=== PATIENT | female | born 2005 | race Caucasian/White ===

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

== ENCOUNTER → 2024-02-05 09:40 | Outpatient (BNVA) | payer OTHER, SELFPAY | PROVIDERS: PCP Family Medicine; Visit Provider Family Medicine Adult Medicine | DX: R39.9 Unspecified symptoms and signs involving the genitourinary system (principal) | CPT/HCPCS: 81000 ==

== ENCOUNTER → 2024-04-15 14:00 | Outpatient (BNVA) | payer OTHER, SELFPAY | PROVIDERS: PCP Family Medicine; Visit Provider Obstetrics & Gynecology | DX: R11.2 Nausea with vomiting, unspecified (principal) | CPT/HCPCS: 84702 ==

== ENCOUNTER → 2024-06-06 13:53 | Outpatient (BNVA) | payer OTHER, SELFPAY | PROVIDERS: Visit Provider Nurse Practitioner | DX: N92.6 Irregular menstruation, unspecified (principal) | CPT/HCPCS: 81025 ==

== ENCOUNTER → 2024-07-01 14:42 | Outpatient (BNVA) | payer OTHER, SELFPAY | PROVIDERS: Visit Provider Nurse Practitioner Women's Health | DX: N92.6 Irregular menstruation, unspecified (principal) | CPT/HCPCS: 81025; 83036; 84146; 84402; 84439; 84443; 84702 ==

== ENCOUNTER → 2024-11-18 12:49 | Outpatient (BNVA) | payer OTHER, SELFPAY | PROVIDERS: Visit Provider Emergency Medicine | DX: N94.6 Dysmenorrhea, unspecified (principal) | CPT/HCPCS: 81025 ==

== ENCOUNTER → 2024-12-16 12:54 | Outpatient (BNVA) | payer OTHER, SELFPAY | PROVIDERS: Visit Provider Nurse Practitioner Women's Health | DX: Z11.3 Encounter for screening for infections with a predominantly sexual mode of transmission (principal); N93.9 Abnormal uterine and vaginal bleeding, unspecified | CPT/HCPCS: 84439; 84443; 84702; 85025; 87086; 87491; 87591; 87661 ==

== ENCOUNTER → 2024-12-26 13:23 | Outpatient (BNVA) | payer OTHER, SELFPAY | PROVIDERS: Visit Provider Nurse Practitioner Women's Health | DX: N92.6 Irregular menstruation, unspecified (principal); N93.9 Abnormal uterine and vaginal bleeding, unspecified; N88.4 Hypertrophic elongation of cervix uteri | CPT/HCPCS: 76830 ==

== ENCOUNTER → 2025-01-25 13:37 | Outpatient (BNVA) | payer OTHER, SELFPAY | PROVIDERS: Visit Provider Nurse Practitioner Women's Health | DX: N93.9 Abnormal uterine and vaginal bleeding, unspecified (principal); R53.83 Other fatigue | CPT/HCPCS: 82728; 83540; 85025 ==

== ENCOUNTER 2025-06-25 14:09 | Emergency (ER) | payer MEDICAID, SELFPAY ==
[2025-06-25 14:13] VITALS: BP 124/88; PULSE 86; RESP 16; TEMP 37.1; O2SAT 97; BMI 24.5
--- OUTSIDE RECORDS SUMMARY | 2025-06-25 14:14 | XMS_ITS | Encounter Summary ---
Author Organization [facility] Address [address] [place] [address] Care Team Providers Care Metabolic Specialist Name Role Phone Nancy Rasheed DO Primary Care Provider [phone] Encounter Details Date Type Department Care Team (Late st Contact Info) Description 06/21/2025 External Device Data [facility] Provider, Abstract NO ADDRESS ON FILE Social History Tobacco Use Types Packs/Day Years Used Date Smoking Tobacco: Never Cigarettes Smokeless Tobacco: Never Alcohol Use Standard Drinks/Week Comments Never 0 (1 standard drink = 0.6 oz pur e alcohol) Adolescent Education Answer Date Record ed Getting School Help Needed Not on file 05/31 Comments Unknown Sex and Gender Information Value Date Recorded Sex Assigned at Not on file 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 Gender Identity Not on file Sexual Orientation Not on file documented as of this encounter Plan of Treatment Upcoming Encounters Date Type Department Care Team (Late st Contact Info) Description 07/27/2025 1:50 PM CDT Office Visit [facility] Joseph Knight [place] [address] [place] [address] Freddy Ventura DO [address] [place] [phone] documented as of this encounter Visit Diagnoses Not on filedocumented in this encounter Care Teams Metabolic Specialist Relationship Specialty Start Date End Date Nancy Rasheed DO [address] [place] [id number] PCP - General 01/01/21 documented as of this encounter
--- OUTSIDE RECORDS SUMMARY | 2025-06-25 14:14 | XMS_ITS | Clinical Summary ---
Author Organization [facility] Address [address] [place] [address] Care Team Providers Care Metal Tile Lather Name Role Phone WiliNancy ortega Primary Care Provider Allergies Active Allergy Reactions Criticality Noted Date Comments Broccoli Swelling Low 09/06/2020 Unclassified Drug Hives High 07/10/2021 [place] and perfumes Medications albuterol HFA 90 mcg inhalerIndications :Exercise-induced asthma Take 2 Puffs by inhalation every 6 hours as needed for Shortness of Breath. 8.5 Gram 0 1 Active haloperidoL (HALDOL) 0.5 mg tabletIndications: Bipolar 1 disorder, depressed, moderate (CMS/HCC),Verbaliz es suicidal thoughts,Visual hallucinations,Aud itory hallucinations Take 1 Tablet (0.5 mg) by mouth 3 times daily as needed for Delirium. 60 Tablet 1 Active hydrOXYzine HCL (ATARAX) 25 mg tabletIndications: Anxiety Take 1 Tablet (25 mg) by mouth 3 times daily as needed for Anxiety or Itching. 90 Tablet 1 1 Active sertraline (Zoloft) 50 mg tabletIndications: Bipolar 1 disorder, depressed, moderate (CMS/HCC),Anxiety Take 1 Tablet (50 mg) by mouth daily. 90 Tablet 1 1 Active brexpiprazole (REXULTI) 2 mg TabletIndications: Bipolar 1 disorder, depressed, moderate (CMS/HCC),Visual hallucinations,Aud itory hallucinations,Anx iety Take 1 Tablet (2 mg) by mouth daily. 30 Tablet 1 1 Active Active Problems Problem Noted Date Diagnosed Date Amenorrhea 04/16/2021 Dysmenorrhea in adolescent 09/14/2020 Breakthrough bleeding on control pills Encounters Date Type Department Care Team Description 06/21/2025 External Device Data [facility] ABSTRACTION Provider, Abstract 06/13/2025 External Device Data [facility] ABSTRACTION Provider, Abstract 06/13/2025 External Device Data [facility] ABSTRACTION Provider, Abstract 06/12/2025 Telephone [facility] Joseph Knight [place] [address] [place] [id number] Freddy Ventura DO Referral from Last 3 Months Family History Medical History Relation Name Comments Diabetes Mother Heart Disease Mother Breast Cancer Neg Hx Ovarian Cancer Neg Hx Relation Name Status Comments Mother Social History Tobacco Use Types Packs/Day Years [...] on file 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 Gender Identity Not on file Sexual Orientation Not on file Last Filed Vital Signs Vital Sign Reading Time Taken Comments Blood Pressure 118/62 07/10/2021 10:53 AM CDT Pulse 113 07/10/2021 10:53 AM CDT Temperature 36.3 C (97.3 F) 07/10/2021 10:53 AM CDT Respiratory Rate 18 07/10/2021 10:53 AM CDT Oxygen Saturation 97% 07/10/2021 10:53 AM CDT Inhaled Oxygen Concentration - - Weight 56.7 kg (125 lb) 07/10/2021 10:53 AM CDT Height 152.4 cm (5') 07/10/2021 10:53 AM CDT Body Mass Index 24.41 07/10/2021 10:53 AM CDT Plan of Treatment Upcoming Encounters Date Type Department Care Team (Late st Contact Info) Description 07/27/2025 1:50 PM CDT Office Visit [facility] Joseph Knight [place] [address] [place] [phone] Freddy Ventura DO [address] [place] [phone] Health Maintenance Due Date Last Done Comments HEPATITIS B VACCINES (4 of 4 - 4-dose series) 07/03/2005 05/05/2005, 03/03/2005, 2004 CHLAMYDIA SCREENING (ANNUAL) 11-24 YEARS 01/01/2016 DTAP/TDAP/TD VACCINES (1 - Tdap) 01/01/2024 Preventative Visit-Managed Medicaid 01/01/2024 INFLUENZA VACCINE (#1) 2025 07/10/2021 HPV VACCINES Completed 03/13/2017, 07/18/2016 Insurance [facility] [facility] MEDICAID [facility] MEDICAID [facility] Care Teams Metal Tile Lather Relationship Specialty Start Date End Date Nancy Rasehed DO [address] [place] [address] PCP - General 01/01/21
--- NOTE | 2025-06-25 14:59 | ED_ITS ---
HPI - 2 General: Chief complaint: Vaginal Bleeding Stated complaint: shedding clots(8wks) Time Seen by Provider: 06/25/25 14:31 History of Present Illness: 19-year-old female presents to the [facility] ency room with complaints of pelvic cramping and vaginal bleeding. Her last menstrual period was 05/16/2025 which would give her an estimated gestational age of 5 weeks and 5 days with an EDC of 02/20/2026. Patient has not had a positive test at home. She states the bleeding is already decreased. She denies any dysuria urgency or frequency no abdominal pain no fever sweats or chills. Patient believes she passed some blood and tissue last night. Associated symptoms: Deny abdominal pain or dysuria Related Data Previous Rx's ?Medication ?Instructions ?Recorded escitalopram oxalate 10 mg tablet 10 mg PO DAILY #30 t abs 06/15/25 hydroxyzine HCl 25 mg tablet 25 mg PO BID PRN anxiety #60 tabs 06/15/25 Allergies Allergy/AdvReac Type Severity Reaction Status Date / Time broccoli Allergy Severe mouth burn Verified 06/25/25 14:13 perfume Allergy Severe hives Verified 06/25/25 14:13 Review of Systems 2 Const: Denies: fever(s) or chills Card: Denies: chest pain Resp: Denies: dyspnea GI: Denies: abdominal pain : Denies: dysuria, urinary frequency or urinary urgency Musc: Denies: neck pain or back pain Skin/Breast: Denies: rash PFSH ED 2 PFSH: Medical History No pertinent past medical history neghx:htn,dm,thyroid,dvt/pe PCP: [facility] Anxiety disorder, unspecified Reports anxiety that impairs ability to leave the home; without family or close friends, unable to go to public functions; hasn't felt like going to the store; anxiety produces physical symptoms of shortness of breath, sweaty palms, racing heartbeat, sometimes nausea, hard to talk, difficult to perform basic functions. Symptoms have worsened since 10/2019, when she got out of a relationship with her significant other of 2 years; it was not healthy at all, it was a stressful relationship. It left me with a lot of anxiety, an anxiety of men. She denies physical abuse. He never beat me. Also reports feeling depressed, intermittent feelings of helplessness and worthlessness. No current suicidal thoughts. Borderline personality disorder in adolescent Please refer to EMR for previous diagnosis, psychiatric evaluations, and therapy/[facility] medication management provider notes. Surgical History H/O breast biopsy (~06/2022) left breast-- fibroadenoma Family History Grandmother Diabetes Hypertension Mother Heart disease Hypertension Denies family history of Colon cancer Ovarian cancer Hypercholesteremia Breast cancer Uterine cancer Thyroid disease Stroke Social History Smoking and tobacco/nicotine status: never used tobacco/nicotine Physical Exam 2 Const: COMMON NORMALS: no acute distress GENERAL APPEARANCE: cooperative and comfortable ORIENTATION/CONSCIOUSNESS: Yes awake, Yes oriented to person, Yes oriented to place and Yes oriented to time HENMT: COMMON NORMALS: normocephalic, atraumatic and hearing grossly normal bilaterally HEAD & SCALP: normocephalic and atraumatic Resp: COMMON NORMALS: normal respiratory effort, No retractions, No use of accessory muscles and clear to auscultation bilaterally AUSCULTATION: clear to auscultation bilaterally Cardio: COMMON NORMALS: regular rate, regular rhythm and No murmurs present (Cardio) RATE: regular rate RHYTHM: regular rhythm GI: COMMON NORMALS: Soft to palpation and No hepatosplenomegaly present A USCULTATION: Yes normoactive bowel sounds PALPATION: Yes Soft to palpation, No Tenderness to palpation present (GI), No Guarding due to palpation present (GI) and Yes No hepatosplenomegaly present Extremity: COMMON NORMALS: normal to inspection, capillary refill normal, no clubbing, cyanosis or edema, no calf tenderness and no pedal edema Neuro: SENSORIUM/ORIENTATION: Yes oriented to person, Yes oriented to place and Yes oriented to time Skin: COMMON NORMALS: no rashes or lesions noted GENERAL SKIN EXAM: no rashes or lesions noted Course 2 Vital Signs: Vital signs: Vital Signs Temperature 98.7 F 06/25/25 14:13 Pulse Rate 73 06/25/25 16:05 Respiratory Rate 16 06/25/25 14:13 Blood Pressure 112/74 06/25/25 16:05 Pulse Oximetry 97 06/25/25 16:05 Oxygen Delivery Me thod Room Air 06/25/25 15:08 MDM - OB/Uterine Contractions Medical Decision Making Beta-hCG less than 1. Suspect patient just had a missed period. Given that her beta-hCG is undetectable already do not believe she actually had a miscarriage. Reviewed findings with patient advised her to follow-up with her primary care doctor she is currently on oral contraceptives. Follow-up with your primary if she continues to have irregular periods Medical Records I reviewed the patient's medical records. Lab Data I reviewed the patient's lab results. 06/25/25 15:15 Laboratory Results WBC 9.12 10^3/uL (4.5-13.0) 06/25/25 15:15 RBC 4.23 10^6/uL (3.85-5.65) 06/25/25 15:15 Hgb 12.60 g/dL (12.4-14.8) 06/25/25 15:15 Hct 36.9 % (36-47) 06/25/25 15:15 MCV 87.2 fl (85-98) 06/25/25 15:15 MCH 29.8 pg (27-33) 06/25/25 15:15 MCHC 34.1 g/dL (30-55) 06/25/25 15:15 RDW 11.6 % (12.1-15.1) L 06/25/25 15:15 Plt Count 182 10^3/cmm (157-399) 06/25/25 15:15 MPV 9.9 fL (7.4-10.4) 06/25/25 15:15 Neut % (Auto) 63.8 % 06/25/25 15:15 Lymph % (Auto) 29.3 % 06/25/25 15:15 [place] % (Auto) 5.8 % 06/25/25 15:15 Eos % (Auto) 0.7 % 06/25/25 15:15 Baso % (Auto) 0.2 % 06/25/25 15:15 Neut # (Auto) 5.82 10^3/uL (1.8-8.0) 06/25/25 15:15 Lymph # (Auto) 2.7 10^3/uL (1.5-6.5) 06/25/25 15:15 [place] # (Auto) 0.5 10^3/uL (0.2-0.9) 06/25/25 15:15 Eos # (Auto) 0.1 10^3/uL (0.0-0.8) 06/25/25 15:15 Baso # (Auto) 0.0 10^3/uL (0.0-0.1) 06/25/25 15:15 Nucleated RBC % (auto) 0 % 06/25/25 15:15 Nucleated RBCs # 0.0 /100WBC 06/25/25 15:15 Ser , Semi-Qnt < 1.00 mIU/mL 06/25/25 15:15 Blood Type A Positive 06/25/25 15:15 Rho(D) Type Rh positive 06/25/25 15:15 Antibody Screen Negative 06/25/25 15:15 No radiology studies performed this visit Discharge Plan Discharge Patient Disposition: Home Clinical Impression: Irregular menses Condition: Stable Prescriptions: No Action hydroxyzine HCl 25 mg tablet 25 mg PO BID PRN (Reason: anxiety) Qty: 60 1RF Rx Instructions: Take one tablet up to twice daily, if needed for anxiety, at least 4 hours apart escitalopram oxalate 10 mg tablet 10 mg PO DAILY Qty: 30 1RF Rx Instructions: Take one tablet daily Discharge Orders: Discharge ED (Routine); Ordered 06/25/25 Ordered By: Jayden Dawson Referrals: Hawa Gaines DO [Primary Care Provider, STYRENE DEHYDRATION REACTOR OPERATOR] Discharge Diet: Usual diet Discharge Activity: Increase activity as tolerated Patient Instructions: Opioid Safety, Pain Management, Patient Portal & Charles Instructions Activity Restrictions/Additional Instructions: Thank you for choosing [facility] for your healthcare needs today. It is very important that you follow up as instructed or that you return to the Emergency Department should you have concerns or if your condition changes or worsens in any way. Emergency department visits are focused on emergent conditions, in some cases you may require further evaluation on an outpatient basis. You were seen in the emergency room with concerns of heavy vaginal bleeding. Your hemoglobin is stable. Your beta-hCG was below detectable limits which indicates you were likely not . It is possible that you had been and miscarried however given his low your beta-hCG is that seems quite unlikely. Usually when the bleeding for starts or still will be a residual amount of hormone left in the system. Recommend you continue your current medications including the oral contraceptive pills and follow-up with your primary care provider if you continue to have irregular periods they may want to adjust your medicines. (Please note that included in your discharge packet is information concerning opioid safety and pain management. This information is given to all patients were discharged from the ER regardless of their discharge diagnosis or the medicines they usually take or are prescribed.) Print Language: Czech Coding Level of Care Code ED Irrigation Manager for Swetha Rea
[2025-06-25 15:08] VITALS: BP 112/74; PULSE 85; O2SAT 97
--- NOTE | 2025-06-25 15:23 | PC.NURSE ---
PT changed out of clothes, placed into gown, shell brace on, pt brief changed, pt incontinent of urine. Pt repositioned in bed.
[2025-06-25 15:24] LABS: Hematocrit 36.9 % (36-47); Hemoglobin 12.60 g/dL (12.4-14.8); Mean Corpuscular HGB Conc 34.1 g/dL (30-55); Mean Corpuscular Hemoglobin 29.8 pg (27-33); Mean Corpuscular Volume 87.2 fl (85-98); Nucleated Red Blood Cells % 0 %; Platelet Count 182 10^3/cmm (157-399); Red Blood Count 4.23 10^6/uL (3.85-5.65); White Blood Count 9.12 10^3/uL (4.5-13.0)
[2025-06-25 16:05] VITALS: BP 112/74; PULSE 73; O2SAT 97
== END 2025-06-25 16:08 | disposition home or self-care (01) ==
PROVIDERS: Emergency Medicine; Emergency Provider Family Medicine; PCP Family Medicine
DX: N92.6 Irregular menstruation, unspecified (principal)
CPT/HCPCS: 84702; 85025; 86850; 86900; 99283